=== PATIENT | male | born 1980 | race Caucasian/White ===

== ENCOUNTER 2021-08-26 09:20 | Emergency (ER) | payer BC, OTHER ==
[~2021-08-26] VITALS: Ht 172.7 cm; Wt 83.9 kg
[~2021-08-26 09:20] MED LIST: ASPI-1012 PO; MAGN400T7 PO; METO50TA9 PO; TOPI25TA48 PO; VIT1TABL81 PO
[2021-08-26 09:51] LABS: BASOPHILS % (AUTO) 0.3 % (0.0-5.0); EOSINOPHILS % (AUTO) 0.1 % (0.0-8.0); HEMATOCRIT 41.4 % (42-54); LYMPHOCYTES % (AUTO) 6.8 % (21.0-51.0); MEAN CORPUSCULAR HEMOGLOBIN 30.6 pg (27.0-33.0); MONOCYTES % (AUTO) 4.7 % (3.0-13.0); NEUTROPHILS % (AUTO) 87.8 % (40.0-77.0); PLATELET COUNT (AUTO) 201 K/uL (130-400); RED BLOOD CELL COUNT(AUTO) 4.87 MIL/uL (4.50-6.20); RED CELL DISTRIBUTION WIDTH 12.7 % (11.0-15.5); WHITE BLOOD COUNT (AUTO) 7.8 K/uL (4.8-10.8)
[2021-08-26] MEDS ORDERED: KETOROLAC 30MG VIAL (30MG/ML) IVP ONE (10:00)
[2021-08-26] MEDS ORDERED: 0.9%NACL 1000ML 1,000 ML IV ONE ×2 (10:00→13:30)
[2021-08-26 10:09] LABS: CREATININE 1.1 mg/dL (0.5-1.5); POTASSIUM 3.8 mmol/L (3.5-5.1)
[2021-08-26 10:11] LABS: ALBUMIN 4.1 g/dL (3.5-5.0); BILIRUBIN,TOTAL 0.6 mg/dL (0.2-1.0); TOTAL PROTEIN, SERUM 6.9 g/dL (6.0-8.3)
[2021-08-26] MEDS: HYDROMORPHONE 1 MG INJ IVP SCH ×2 (11:07→14:57)
[2021-08-26 11:27] LABS: APPEARANCE,URINE Clear (CLEAR); BILIRUBIN,URINE Negative (NEGATIVE); COLOR,URINE Yellow (YELLOW); GLUCOSE, URINE (UA) Negative (NEGATIVE); KETONES,URINE 15 mg/dL (NEGATIVE); LEUKOCYTE ESTERASE ,URINE Negative (NEGATIVE); NITRATE,URINE Negative (NEGATIVE); OCCULT BLOOD,URINE Large (NEGATIVE); PH,URINE 6.5 (5.0-8.0); PROTEIN,URINE Negative (NEGATIVE)
[2021-08-26 11:32] LABS: BACTERIA,URINE Rare /HPF (None Seen); RBC,URINE >100 /HPF (0-1); SQUAMOUS EPITHELIAL CELL,UR Rare /HPF (0-2); WBC,URINE 0-1 /HPF (0-1)
[2021-08-26] MEDS ORDERED: LABETALOL 20MG VIAL IV SCH (12:30)
[2021-08-26] MEDS ORDERED: DILTIAZEM 25MG INJ IVP SCH ×2 (13:00→14:30)
[2021-08-26] MEDS ORDERED: LABETALOL 20MG SYG IV ONE (15:00)
[2021-08-26] MEDS ORDERED: HYDROMORPHONE 1 MG INJ IVP ONE (15:00)
[2021-08-26] MEDS ORDERED: DiphenhydrAMINE HCL 50 MG/ML VIAL IV ONE (15:00)
[2021-08-26] MEDS ORDERED: DEXAMETHASONE SOD PHOSPHATE 4 MG/ML 1ML VIAL IVP SCH (15:00)
[2021-08-26] MEDS ORDERED: ONDANSETRON 4MG INJ IVP ONE (15:00)
[2021-08-26] MEDS ORDERED: ACET1TAB25 PO (15:50)
[2021-08-26] MEDS ORDERED: TAMS-1 PO ×2 (15:51→15:52)
[2021-08-26 16:35] VITALS: BP 132/78
== END 2021-08-26 16:16 | disposition left against medical advice (07) ==
LOC: EDH 09:20
DX: N20.0 Calculus of kidney (principal); I48.91 Unspecified atrial fibrillation; Z88.5 Allergy status to narcotic agent; Z88.0 Allergy status to penicillin; Z79.82 Long term (current) use of aspirin; Z79.899 Other long term (current) drug therapy; Z88.8 Allergy status to other drugs, medicaments and biological substances
CPT/HCPCS: 36415; 74176; 80053; 81001; 83690; 85025; 87088; 93005; 96361 ×2; 96374; 96375; 96376; 99284; J1100; J1170 ×2; J1200; J1885; J2405; J3490